=== PATIENT | male | born 1995 | race Two or more races ===

== ENCOUNTER 2016-09-14 20:55 | Emergency (ER) | payer MEDICAID ==
[2016-09-14] MEDS ORDERED: methylPREDNISolone SOD SUCC 125 MG/2 ML VIAL IM ONE (21:35)
--- NOTE | 2016-09-14 21:35 | EDPHY ---
H & P Stated Complaint: poss allergy- hives Time Seen by Provider: 09/14/16 21:22 HPI/ROS: CHIEF COMPLAINT: Allergic reaction HISTORY OF PRESENT ILLNESS: This is a 21-year-old male presenting to the emergency department complaining of rash to his arms and upper torso. Patient reports the last thing he remembers drinking or eating was a Pepsi around 1800 was some pasta, patient states the vending machine that he got the Pepsi out of was somewhat questionable but drink any ways. Unknown any other cause of the rash, nonlabored respiratory effort no other complaints. REVIEW OF SYSTEMS: Constitutional: No fever, no chills. Eyes: No discharge. ENT: No sore throat. Cardiovascular: No chest pain, no palpitations. Respiratory: No cough, no shortness of breath. Gastrointestinal: No abdominal pain, no vomiting. Musculoskeletal: No back pain. Skin: No rashes. Hives Neurological: No headache. Source: Patient - Personal History Current Tetanus Diphtheria and Acellular Pertussis (TDAP): Yes - Medical/Surgical History Hx Asthma: No Hx Chronic Respiratory Disease: No Hx Diabetes: No Hx Cardiac Disease: No Hx Renal Disease: No Hx Cirrhosis: No Hx Alcoholism: No Hx HIV/AIDS: No Hx Splenectomy or Spleen Trauma: No - Social History Smoking Status: Never smoked - Physical Exam Exam: General Appearance: Alert and no distress. Eyes: Pupils equal and round no injection. Respiratory: Chest is nontender, lungs are clear to auscultation. Nonlabored respiratory effort, patent Cardiac: regular rate and rhythm Gastrointestinal: Abdomen is soft and nontender, no masses, bowel sounds normal. Musculoskeletal: Neck is supple and nontender. Extremities: full range of motion and are nontender. Skin: No lesions. Uticaria to upper extremities and chest Constitutional: Initial Vital Signs Temperature (C) 37 C 09/14/16 21:07 Heart Rate 70 09/14/16 21:07 Respiratory Rate 18 09/14/16 21:07 Blood Pressure 135/83 H 09/14/16 21:07 O2 Sat (%) 98 09/14/16 21:07 O2 Delivery Mode Room Air Allergies/Adverse Reactions: No Known Allergies Allergy (Unverified 09/14/16 21:06) Home Medications: Medication Instructions Recorded Prednisone 04/20/13 predniSONE 20 mg PO BID #10 tablet 09/14/16 Medical Decision Making ED Course/Re-evaluation: Discussed the plan of care: Solu-Medrol 125mg, p.o. Benadryl, PO Pepcid 2240: Patient re-evaluated, decrease in uticaria, nonlabored respiratory effort airway patent 3: Patient states feeling better, discussed discharge instructions with the patient. Discharge home---> stable - Data Points Medications Given: Discontinued Medications Diphenhydramine HCl (Benadryl) 50 mg PO EDNOW ONE Stop: 09/14/16 21:37 Last Admin: 09/14/16 21:50 Dose: 50 mg Famotidine (Pepcid) 20 mg PO EDNOW ONE Stop: 09/14/16 21:37 Last Admin: 09/14/16 21:50 Dose: 20 mg Methylprednisolone Sodium Succinate (Solu-Medrol) 125 mg IM EDNOW ONE Stop: 09/14/16 21:36 Last Admin: 09/14/16 21:45 Dose: 125 mg Departure - Departure Disposition: Home, Routine, Self-Care Clinical Impression: Allergic reaction Qualifiers: Encounter type: initial encounter Qualified Code(s): T78.40XA - Allergy, unspecified, initial encounter Condition: Good Instructions: Urticaria (ED), General Allergic Reaction (ED) Additional Instructions: Discussed discharge plans with patient 1. Continue using benadryl 25-50 mg every 6-8 hours as needed 2. You can also take Pepcid 40 mg daily this will help as a histamine gabrielle 3. You may given up prescription for prednisone take that for the next 5 days 4. Monitor your food intake for any allergies, I would recommend using body wash in laundry detergent that is chemical free and dye free 5. If at any point time you feel symptoms have worsened shortness of breath return to the emergency department Referrals: NONE *PRIMARY CARE P,. [Primary Care Provider] - As per Instructions [facility] [Clinic] - As per Instructions LIV Hernandez,Oliver [Clinic] - As per Instructions Prescriptions: predniSONE 20 mg PO BID #10 tablet
[2016-09-14] MEDS ORDERED: FAMOTIDINE 20 MG TAB PO ONE (21:36)
[2016-09-14] MEDS ORDERED: diphenhydrAMINE 25 MG CAP PO ONE (21:36)
[2016-09-14 23:31] VITALS: BP 129/90; PULSE 63; RESP 16; TEMP 98.1; O2SAT 97
== END 2016-09-14 23:40 | disposition home or self-care (01) ==
DX: T78.40XA Allergy, unspecified, initial encounter (principal)

== ENCOUNTER 2017-03-16 20:00 | Emergency (ER) | payer MEDICAID ==
--- NOTE | 2017-03-16 20:21 | EDPHY ---
H & P Stated Complaint: R 5th finger injury, soccer Time Seen by Provider: 03/16/17 20:21 HPI/ROS: HPI: This is a 21-year-old male who presents with Chief Complaint: Right pinky injury Location: Right pinky Quality: Injury Duration: Yesterday Signs and Symptoms: No bleeding, no radiation, no numbness, no weakness, no tingling, no incontinence, + decreased range of motion, + swelling, + pain Timing: Acute Severity: [id number] Context: Patient was playing [employer] for the 1st time yesterday while playing soccer. She does not remember a particular movement that he injured his finger. He noted yesterday evening that it was tender with decreased range of motion. He woke up this morning with more swelling. He believes he may have jammed pinkie finger on right hand. He applied ice yesterday evening. Has not taken any [id number] pain medication. Right-hand dominant Modifying Factors: Ice Comment: ROS: see HPI Constitutional: No fever, no chills, no weight loss Eyes: No blurred vision Respiratory: No shortness of breath, no cough Cardiovascular: No chest pain Gastrointestinal: No nausea, no vomiting no diarrhea Genitourinary: No dysuria Extremities: No myalgias Neurologic: No weakness, no numbness Skin: No rashes Hematologic: No bruising, no bleeding MEDICAL/SURGICAL/SOCIAL HISTORY: Medical history: Generally healthy. Does not take any regular medications. Surgical history: Denies Social history: Lives in [facility] CONSTITUTIONAL: Young adult male, polite and cooperative, awake and alert, no obvious distress HEENT: Atraumatic and normocephalic, PERRL, EOMI. Tympanic membranes clear. Oropharynx clear, no exudate and moist pink mucosa. Airway patent. No lymphadenopathy. No meningismus. Cardiovascular: Normal S1/S2, regular rate, regular rhythm, without murmur rub or gallop. PULMONARY/CHEST: Symmetrical and nontender. Clear to auscultation bilaterally. Good air movement. No accessory muscle usage. ABDOMEN: Soft, nondistended, nontender, no rebound, no guarding, no peritoneal signs, no masses or organomegaly. No CVAT. EXTREMITIES: 2/2 pulses, right 5th phalanx; distal aspect at DIP joint shows mild swelling and decreased flexion and extension. strength 5/5, no deformities , no clubbing, no cyanosis or edema. NEUROLOGICAL: no focal neuro deficits. GCS 15. SKIN: Warm and dry, no erythema. no rash. Good capillary refill. Source: Patient Exam Limitations: No limitations - Personal History Current Tetanus/Diphtheria Vaccine: Yes - Medical/Surgical History Hx Asthma: No Hx Chronic Respiratory Disease: No Hx Diabetes: No Hx Cardiac Disease: No Hx Renal Disease: No Hx Cirrhosis: No Hx Alcoholism: No Hx HIV/AIDS: No Hx Splenectomy or Spleen Trauma: No Other PMH: PMHx: denies. PSHx: denies - Social History Smoking Status: Never smoked Constitutional: Initial Vital Signs Temperature (C) 36.5 C 03/16/17 20:02 Heart Rate 55 L 03/16/17 20:02 Respiratory Rate 16 03/16/17 20:02 Blood Pressure 133/79 H 03/16/17 20:02 O2 Sat (%) 99 03/16/17 20:02 O2 Delivery Mode Room Air Allergies/Adverse Reactions: No Known Allergies Allergy (Unverified 09/14/16 21:06) Home Medications: Medication Instructions Recorded NK [No Known Home Meds] 03/16/17 Medical Decision Making - Diagnostics Imaging Results: Imaging Impressions Finger X-Ray 03/16/17 20:05 Impression: Mildly displaced avulsion fracture where the common extensor tendon inserts on the dorsal aspect of the right fifth distal phalanx. Procedures: Procedure: Splint placement. A right 5th digit finger splint was applied by the Emergency Room mechanical maintenance technician. After application of the splint I returned and re-examined the patient. The splint was adequately immobilizing the joint and distal to the splint the patient's circulation and sensation was intact. ED Course/Re-evaluation: Finger x-ray ordered and ice pack applied No signs of neurovascular compromise/tenting of skin/compartment syndrome/ extremities and joints examined above and below area of concern and are neurovascularly intact. X-ray my read shows a small avulsion fracture near the DIP joint at the distal phalanx. Possibility of tendon injury Placed in finger splint, rice therapy, hand surgery follow-up Differential Diagnosis: Differential diagnosis includes but is not limited to fracture, nerve injury, tendon injury, contusion, sprain. Departure - Departure Disposition: Home, Routine, Self-Care Clinical Impression: Finger fracture, right Qualifiers: Encounter type: initial encounter Finger: little finger Fracture type: closed Phalanx: distal Fracture alignment: nondisplaced Qualified Code(s): S62.666A - Nondisplaced fracture of distal phalanx of right little finger, initial encounter for closed fracture Sprain of finger of right hand Qualifiers: Encounter type: initial encounter Finger: little finger Sprain of finger site: interphalangeal joint Qualified Code(s): S63.636A - Sprain of interphalangeal joint of right little finger, initial encounter Condition: Good Instructions: Finger Fracture (ED), RICE Therapy (ED) Additional Instructions: Keep the splint dry and in place until seen by Orthopedics for follow-up. Take ibuprofen 600-800 mg every 6-8 hours with food as needed for pain and inflammation. Apply ice for 30 minutes at a time; 2-3 times per day for the next 1-2 days. Follow up with Orthopedics in 5-7 days as there is concern for extensor tendon injury at which time they will evaluate and recommend with you if conservative management versus surgery is indicated. Referrals: Grecia Martin MD [Medical Doctor] - As per Instructions
[2017-03-16 20:53] VITALS: BP 120/89; PULSE 60; RESP 18; TEMP 98.4; O2SAT 97
== END 2017-03-16 20:58 | disposition home or self-care (01) ==
DX: S62.666A Nondisplaced fracture of distal phalanx of right little finger, initial encounter for closed fracture (principal); S63.636A Sprain of interphalangeal joint of right little finger, initial encounter; W23.1XXA Caught, crushed, jammed, or pinched between stationary objects, initial encounter; Y99.8 Other external cause status; Y93.66 Activity, soccer
CPT/HCPCS: L3925